=== PATIENT | female | born 1960 | race Caucasian/White ===

== ENCOUNTER 2020-08-25 08:45 | Outpatient (CLI) | payer BC, SELFPAY ==
--- NOTE | ~2020-08-25 | PE_ITS ---
EXAMINATION: PET skull to mid thigh DATE: 08/25/2020 10:49 INDICATION: Multiple pulmonary nodules. TECHNIQUE: Blood glucose level was 107 mg/dL. 10.89 mCi of 18-fluorodeoxyglucose (18-FDG) was adminis tered i.v. Low dose computed tomography (CT) images were acquired from the base of the brain to the p roximal thighs for attenuation correction and anatomic localization. Automated exposure control was e mployed. Dose-length product (DLP) was 1299 mGy-cm. Positron emission tomography (PET) images were ac quired in the same distribution. COMPARISON: None FINDINGS: Head/neck: There are no pathologically enlarged lymph nodes. Chest: There is mild emphysema. The lungs demonstrate mild atelectasis. There is a 6 mm nodule in rig ht upper lobe without increased activity. There is a 5 mm nodule in left lower lobe without increased activity. No pleural effusion. Cardiomegaly is noted. No pericardial effusion. There are coronary ar pedro calcifications. The central pulmonary arteries are enlarged, consistent with pulmonary arterial hypertension. Abdomen/pelvis/proximal thighs: The liver is normal. There are gallstones in the gallbladder, which i s normal in size. There is moderate splenomegaly, which may be secondary to obesity. The pancreas and adrenal glands are normal. There is a 5 mm stone in right kidney. Left kidney is normal. There are n o dilated loops of bowel. There is a widemouthed umbilical hernia containing nonobstructed small angie l. There are no pathologically enlarged lymph nodes. There is no free intraperitoneal fluid. There is mild lumbar spondylosis. IMPRESSION: 1. Pulmonary nodules measuring up to 6 mm without increased activity, probably benign. Noncontrast lo w-dose chest CT is recommended in 6-12 months. Reviewed, dictated and finalized at location A. IMPRESSION: 1. Pulmonary nodules measuring up to 6 mm without increased activity, probably benign. Noncontrast low-dose chest CT is recommended in 6-12 months.
[2020-08-25 09:22] LABS: Glucose Point of Care 107 mg/dl (65-105)
== END 2020-08-25 08:46 | disposition home or self-care (01) ==
PROVIDERS: PCP Internal Medicine Gastroenterology; Visit Provider Nurse Practitioner
DX: R91.8 Other nonspecific abnormal finding of lung field (principal)
CPT/HCPCS: 78815; 82948; A9552